=== PATIENT | female | born 1955 | race Caucasian/White ===

== ENCOUNTER → 2019-05-29 08:07 | Outpatient (BNVA) | payer OTHER, SELFPAY | PROVIDERS: Visit Provider Obstetrics & Gynecology | DX: N81.10 Cystocele, unspecified (principal) | CPT/HCPCS: 81003 ==

== ENCOUNTER 2019-09-05 10:25 | Observation (INO) | payer OTHER, SELFPAY ==
[2019-09-03 09:40] VITALS: BMI 26.6
[2019-09-03 10:03] LABS: Basophils % 0.7 %; Eosinophils # 0.1 10^3/uL (0.0-0.8); Eosinophils % 1.3 %; Hematocrit 44.1 % (37.0-47.0); Hemoglobin 14.1 g/dL (11.5-15.3); Lymphocytes # 1.9 10^3/uL (0.8-4.8); Mean Corpuscular Hemoglobin 29.5 pg (28.0-34.0); Mean Corpuscular Volume 92.3 fL (81-99); Mean Platelet Volume 8.8 fL (7.4-10.4); Monocytes # 0.4 10^3/uL (0.2-0.9); Monocytes % 7.1 %; Neutrophils # 3.5 10^3/uL (1.8-7.7); Neutrophils % 58.6 %; Nucleated Red Blood Cells % 0 %; Platelet Count 338 10^3/cmm (130-400); Red Blood Count 4.78 10^6/uL (4.1-5.3); Red Cell Distribution Width 13.4 % (12.1-15.1)
--- NOTE | 2019-09-03 10:06 | ANES.PREANE2 ---
Pre-Anesthetic Assessment Pre-Anesthetic Assessment: Height/Weight: Height 1.68 m Weight 74.843 kg Preop Diagnosis: Uterine prolapse Proposed Procedure: Operation Date: 09/05/19 09:10 Proposed Procedures p Total Vaginal Izmmrflgnrby40837/72785/95159/67226/N81.10(Not Applicable) - Patel Khan MD s Anterior and posterior colporrhaphy 78380(Not Applicable) - Patel Khan MD s Single incision urethral sling Sacrospinous ligament suspension 26102(Not Applicable) - Patel Khan MD Familial anesthetic complications: None Social: Social History: No alcohol and No tobacco Comment: former smoker Exam: Pre-Anes Outpt Exam: alert, oriented x 3, clear to auscultation bilaterally and regular rate & rhythm Airway: Cervical ROM: WNL MP: 2 Dentition: Chipped Additional comments: misssing Pulmonary: Pulmonary: None reported CV/HEM: CV/HEM: None reported : : None reported Hepatic: Hepatic: None reported GI: GI: None reported Metabolic: Metabolic: None reported Musc/skel: Musc/skel: Scoliosis Neuropsych: Neuropsych: TIA (6 years ago) Comments: 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5 MCHC 32.0 RDW 13.4 Plt Count 338 MPV 8.8 Neut % (Auto) 58.6 Lymph % (Auto) 32.0 [place] % (Auto) 7.1 Eos % (Auto) 1.3 Baso % (Auto) 0.7 Neut # (Auto) 3.5 Lymph # (Auto) 1.9 [place] # (Auto) 0.4 Eos # (Auto) 0.1 Baso # (Auto) 0.0 Nucleated RBC % (auto) 0 Nucleated RBCs # 0.0 Cardiac Studies: No Data to Display
[2019-09-03 10:15] LABS: Alanine Aminotransferase 14 U/L (0-33); Albumin Level 4.7 g/dL (3.5-5.2); Alkaline Phosphatase 125 IU/L (35-105); Anion Gap 16.1 (5-19); Aspartate Amino Transferase 16 U/L (0-32); Blood Urea Nitrogen 15 mg/dL (8-23); Calcium 9.6 mg/dL (8.5-10.5); Carbon Dioxide 26 mmol/L (22-29); Chloride 101 mmol/L (98-107); Creatinine Clr Calc Pharmacy 86.1863; Globulin 3.1 g/dL (1.3-4.6); Glomerular Filtration Rate 84.8 mL/min (90-130); Glucose 119 mg/dL (65-115); Osmolality Calculated 285 mOsm/kg (285-295); Potassium 4.1 mmol/L (3.5-5.1); Sodium 139 mmol/L (136-145); Total Bilirubin 0.4 mg/dL (0.15-1.2); Total Protein 7.8 g/dL (6.6-8.7)
[2019-09-03 10:17] LABS: Add Urine Microscopic? YES; Bilirubin Urine Neg (NEGATIVE); Blood Urine Trace (Negative); Glucose Urine UA Norm (Normal); Ketones Urine Negative (Negative); Leukocyte Esterase Urine Negative (Negative); Nitrate Urine Negative (Negative); Protein Urine Neg (Negative); Specific Gravity, Urine 1.015 (1.005-1.030); Urine Appearance Clear (CLEAR); Urine Color Straw (Yellow); Urobilinogen Urine Norm (Negative)
[2019-09-03 10:24] LABS: Add Urine Culture? No; Bacteria Urine TRACE; Mucus Urine 1+; RBC Urine 0-4 /hpf (0-2); Squamous Epithelial Cell Urine 0-4 (0-5)
[2019-09-05] VITALS (17 sets, daily range): BP systolic 97–132; BP diastolic 58–78; PULSE 70–94; RESP 12–19; TEMP 36.1–36.7; O2SAT 95–100; BMI 26.3
--- NOTE | 2019-09-05 06:31 | P.ANESUD_ITS ---
Pre-Anesthetic Update Pre-Anesthetic Assessment: Date of Surgery/Procedure: 09/05/19 Preop Justina gnosis: Uterine prolapse Proposed Procedure: Operation Date: 09/05/19 07:00 Proposed Procedures p Total Vaginal [id number]/79081/35981/48851/N81.10(Not Applicable) - Patel Khan MD s Anterior and posterior colporrhaphy 27939(Not Applicable) - Patel Khan MD s Single incision urethral sling Sacrospinous ligament suspension 26460(Not Applicable) - Patel Khan MD s Posterior Repair(Not Applicable) - Patel Khan MD Any changes to Pre-Anesthetic Assessment?: No Last Intake: Intake NPO > 8 hrs Last Liquid Date 09/04/19 Last Solid Date 09/04/19 Labs Last 48hrs: Laboratory Results - last 48 hr 09/03/19 09/03/19 09/03/19 09:50 09:50 09:50 WBC 6.0 RBC 4.78 Hgb 14.1 Hct 44.1 MCV 92.3 MCH 29.5 MCHC 32.0 RDW 13.4 Plt Count 338 MPV 8.8 Neut % (Auto) 58.6 Lymph % (Auto) 32.0 [place] % (Auto) 7.1 Eos % (Auto) 1.3 Baso % (Auto) 0.7 Neut # (Auto) 3.5 Lymph # (Auto) 1.9 [place] # (Auto) 0.4 Eos # (Auto) 0.1 Baso # (Auto) 0.0 Nucleated RBC % (a uto) 0 Nucleated RBCs # 0.0 Sodium 139 Potassium 4.1 Chloride 101 Carbon Dioxide 26 Anion Gap 16.1 BUN 15 Creatinine 0.7 GFR Calculation 84.8 L Glucose 119 H Calculated Osmolal ity 285 Calcium 9.6 Total Bilirubin 0.4 AST 16 ALT 14 Alkaline Phosphata se 125 H Total Protein 7.8 Albumin 4.7 Globulin 3.1 Urine Color Urine Appearance Urine pH Ur Specific Gravit y Urine Protein Urine Glucose (UA) Urine Ketones Urine Blood Urine Nitrate Urine Bilirubin Urine Urobilinogen Ur Leukocyte Tahira ase Urine RBC Urine WBC Ur Squamous Epith Cells Urine Bacteria Urine Mucus Blood Type A Positive Rho(D) Type Positive Antibody Screen Negative 09/03/19 10:10 WBC RBC Hgb Hct MCV MCH MCHC RDW Plt Count MPV Neut % (Auto) Lymph % (Auto) [place] % (Auto) Eos % (Auto) Baso % (Auto) Neut # (Auto) Lymph # (Auto) [place] # (Auto) Eos # (Auto) Baso # (Auto) Nucleated RBC % (a uto) Nucleated RBCs # Sodium Potassium Chloride Carbon Dioxide Anion Gap BUN Creatinine GFR Calculation Glucose Calculated Osmolal ity Calcium Total Bilirubin AST ALT Alkaline Phosphata se Total Protein Albumin Globulin Urine Color Straw Urine Appearance Clear Urine pH 5.0 Ur Specific Gravit y 1.015 Urine Protein Neg Urine Glucose (UA) Norm Urine Ketones Negative Urine Blood Trace H Urine Nitrate Negative Urine Bilirubin Neg Urine Urobilinogen Norm Ur Leukocyte [place]ira ase Negative Urine RBC 0-4 H Urine WBC None Ur Squamous Epith Cells 0-4 H Urine Bacteria Trace Urine Mucus 1+ Blood Type Rho(D) Type Antibody Screen Vitals: Temperature 97.9 F 09/05/19 06:11 Temperature Source Temporal Artery S can 09/05/19 06:11 Pulse Rate 73 09/05/19 06:11 Pulse Rhythm 09/05/19 06:11 Pulse Strength 3+ Normal 09/05/19 06:11 Respiratory Rate 18 09/05/19 06:11 Blood Pressure 132/78 09/05/19 06:11 Blood Pressure Theresa n 96 09/05/19 06:11 Pulse Oximetry 96 09/05/19 06:11 Oxygen Delivery Me thod 09/05/19 06:11 Exam: Pre-Anes Outpt Exam: alert, oriented x 3, clear to auscultation bilaterally and regular rate & rhythm Cardiac Studies: No Data to Display
--- NOTE | 2019-09-05 06:49 | W.PM.OPSUD ---
Surgery/Procedure H&P Update DATE OF PROCEDURE: September 05, 2019 DATE H&P PERFORMED: 09/03/19 H&P UPDATE INFORMATION: I have reviewed H&P completed within last 30 days, I have examined patient prior to procedure and No changes to prior documentation PREOP DIAGNOSIS: Uterine prolapse PLANNED PROCEDURE: Operation Date: 09/05/19 07:00 Proposed Procedures p Total Vaginal [id number]/47839/18690/08607/N81.10(Not Applicable) - Patel Khan MD s Anterior and posterior colporrhaphy 52200(Not Applicable) - Patel Khan MD s Single incision urethral sling Sacrospinous ligament suspension 53072(Not Applicable) - Patel Khan MD s Posterior Repair(Not Applicable) - Patel hKan MD
[2019-09-05] MEDS: sodium chloride 0.9% 1,000 ML 30 ML IV (07:20)
--- NOTE | 2019-09-05 07:57 | SUR.OPER ---
family updated per cell phone
--- NOTE | 2019-09-05 08:54 | SUR.OPER ---
patient family updated via telephone
--- NOTE | 2019-09-05 09:54 | SUR.OPER ---
family updated via telephone
[2019-09-05] MEDS: estrogens Conjugated Cream 30 gm 1 APPLIC VAGINAL (10:18)
--- NOTE | 2019-09-05 10:35 | P.OP_ITS ---
Operative Report Date of procedure: September 05, 2019 Pre-op Diagnosis: Uterine prolapse Post-op diagnosis: same Procedure Done: Total vaginal hysterectomy with Anterior colporrhaphy augmented with allograft, bilateral sacralspinous ligament fixation, Mid urethral sling. Cystoscopy Specimens removed/disposition: The uterus Surgeon: Patel Khan Anesthesia: General Estimated blood loss (mL): 200 IV fluids (mL): 1,100 Urine output (mL): 200 Complications: None Findings: Uterine prolapse stage III with cystocele and rectocele Condition: stable Disposition: PACU Procedure: After informed consent and risks, benefits, indications and alternatives reviewed with the patient was taken to the operating room. The patient was placed in dorsal lithotomy position prepped, and draped in the usual sterile fashion. The pre-procedure timeout verifying the correct patient, procedure, site and side, could not requirements was performed and acknowledge by the OR team. A Gonzalez catheter was placed. A Bookwalter vaginal retractor was placed into the vagina in usual manner visualize the cervix. Cervix was grasped with a single tooth tenaculum and circumferentially infiltrated with 1% Xylocaine with epinephrine. Then cervix was circumferentially incised with bovie and the bladder was dissected off the pubovesical cervical fascia anteriorly with a sponge stick and Metzenbaum scissors. The anterior peritoneal reflection was identified and the anterior cul-de-sac was entered sharply with Metzenbaum scissors. The same procedure was performed posteriorly and a posterior colpotomy was made through the posterior cul-de-sac space without difficulty and the posterior blade of the Bookwalter vaginal retractor was advanced posteriorly into the cul-de-sac. At this time, the left and right uterosacral ligaments were isolated and ligated with 0 Vicryl. The Voyant device was placed over the uterosacral ligaments on either side and was then used in a serial fashion up through the cardinal ligaments bilaterally cross-clamped, cut, and sealed with the Voyant device. Finally, the uterine arteries were cross-clamped, cut, sealed and ligated with the Voyant device. Hemostasis was assured. The broad ligaments were then serially clamped, sealed and cut with the Voyant device on both sides. Excellent hemostasis was visualized. Both cornua were clamped, sealed and cut with the Voyant/Voyant device. Then the pedicles were then suture ligated with excellent hemostasis. The uterus was excised and submitted for pathologic evaluation. No other abnormalities were noted in the pelvic cavity. The peritoneum was then closed in a pursestring fashion with 0 Vicryl suture. The vaginal cuff angles were closed with [id number] #0 Vicryl suture on both sides and transfixed with the ipsilateral cardinal and uterosacral ligaments. The remainder of the vaginal cuff was closed with #0 Vicryl in a running locked fashion. The anterior vaginal mucosa beneath the midurethra was infiltrated with 0.5% Marcaine with epinephrine. A vertical midline incision was made beneath the midurethra, nearly 1.5 cm length. Careful submucosal dissection was performed bilaterally up to the interior portion of the inferior pubic ramus. The insertion of adductor longus tendon on the patient?s pubic ramus was identified as reference land marshall. Palpated the notch along the internal edge of ischiopubic ramus where the adductor longus tendon and the inferior pubic ramus meet. The needle of the SIS inserted aiming at the location of this notch. One of the integrated self-fixating tips place onto the needle by sliding it over the end of the needle. The needle/sling assembly was inserted toward the location of identified reference notch making sure that the flat of the handle is perpendicular to the desired path. The needle was tracked along the posterior surface of the ischiopubic ramus until the midline marshall on the mesh is approximately at the midline position under the urethra. The needle was removed and the same was repeated on the contralateral side until the appropriate sling tension under the urethra was achieved ensuring that the mesh lays flat. The needle was removed and vaginal incision was closed in a running interlocking fashion with 2-0 Vicryl. The vaginal mucosa was then injected in the midline with normal saline. The vaginal mucosa was scored in the midline with the Bovie approximately 1 cm medial to the urethral meatus to 1 cm distal to the vaginal cuff/cervix. This vaginal mucosa was then undermined and then incised in the midline with the Metzenbaum scissors. The lateral aspects of the vaginal mucosa were then grasped with the Allis clamps and the vaginal mucosa was then dissected off the underlying fascia with the Metzenbaum scissors. Again, there was noted to be quite a bit of oozing at the incision, which was controlled with cautery. After adequate dissection was performed, bilaterally. The allograft is modified at time of application to fit spacea,4 x 3 cm piece . The allograft placed in front of cystocele ready to be implanted with the Basement Membrane facing the vagina mucosa. Suture is placed at distal end of graft and placed towards vaginal cuff. Final suture is placed on proximal portion of the graft to complete the placement overlying the bladder. Then Interrupted vertical mattress sutures of 0 Vicryl were used to elevate the cystocele superiorly. The excessive vaginal mucosa was then trimmed with the Metzenbaum scissors and the vaginal mucosa was then reapproximated in the running interlocking fashion with 2-0 Vicryl. The posterior vaginal mucosa is opened in the routine fashion as described previously in Posterior Repair. A finger is inserted through the incision in the posterior vaginal mucosa, dissecting out the rectovaginal space (RVS). The right rectal pillar (RRP) is identified. The rectal pillar can be bluntly perforated either with the finger or with the tip of a long Archana clamp. A Manan-Padmaja retractor is used for exposing the rectovaginal space in order to enter the pararectal space with retraction of the cardinal ligament, vagina, and rectum. Displacing the rectum to the left and the cardinal ligament and ureter anteriorly. A sponge dissector is used to bluntly dissect the sacrospinous l igament removing areolar tissue. The ischial spine was palpated directly, and a area approximately 2 cm medial to the spine was selected for insertion of the Anchorsure transvaginal sacrospinous fixation system. One end of the suture of Anchoresure system inserted through the sacrospinous ligament is placed through the muscular layer of the vagina. In a similar manner, the second suture is placed. The opposite end of the suture in the sacrospinous ligament is left free and held on a small hemostat. Then traction on this suture will draw the vaginal vault directly to the ligament, where a square knot affixes it to the sacrospinous ligament. After the saurabh stich is tied the second safety stich is tied. Then the colporrhaphy/vaginal repair is carried out in routine fashion. The patient was given indigo carmine IV. At this time, instruments were removed from the vagina at hemostasis assured. Then the Gonzalez catheter was removed and cystoscope was inserted. The bladder was filled with sterile water. Complete evaluation of the bladder mucosa was performed noting no lacerations, dimpling, tears, bleeding of the mucosa or muscular layers. Both ureteral orifices were identified. Prompt excretion of urine from both ureteral orifices was noted. Cystoscope was withdrawn. Gonzalez catheter was then placed yielding clear blue/serena urine. A vaginal packing with Premarin cream was placed and the patient was taken out of dorsal lithotomy position and awakened from the general anesthesia. The patient tolerated the procedure well and was taken to the PACU recovery room in a stable condition. Sponge, lap, needle and instruments counts were correct x3.
[2019-09-05] MEDS: ketorolac 30 mg/mL INJ IVP ×2 (11:38→18:08)
[2019-09-05] MEDS: dextrose 5%-lactated ringers 1,000 ML 125 ML IV (11:41)
[2019-09-05] MEDS: HYDROcodone-acetaminophen 5-325 mg Tablet PO (11:52)
[2019-09-05] MEDS: docusate sodium 100 mg Capsule PO (19:32)
[2019-09-06 04:10] VITALS: BP 108/71; PULSE 82; RESP 18; TEMP 36.7
[2019-09-06 05:32] LABS: Hematocrit 31.9 % (37.0-47.0); Mean Corpuscular HGB Conc 31.3 g/dL (30.0-36.0); Mean Corpuscular Hemoglobin 29.2 pg (28.0-34.0); Mean Platelet Volume 8.9 fL (7.4-10.4); Platelet Count 251 10^3/cmm (130-400); Red Blood Count 3.43 10^6/uL (4.1-5.3); Red Cell Distribution Width 13.5 % (12.1-15.1); White Blood Count 10.2 10^3/uL (4.0-10.0)
--- NOTE | 2019-09-06 06:20 | PC.NURSE ---
Gonzalez and packing removed at this time per Dr. Lacey verbal order
[2019-09-06] MEDS: ketorolac 30 mg/mL INJ IVP (06:29)
[2019-09-06] MEDS: docusate sodium 100 mg Capsule PO (09:37)
[2019-09-06 09:42] VITALS: BP 104/62; PULSE 82; RESP 16; TEMP 36.7; O2SAT 95
--- NOTE | 2019-09-06 10:42 | P.DS_ITS ---
Discharge Providers MIXER OPERATOR TABLETS Date of Admission: 09/05/19 10:25 Date of Discharge: 09/06/19 Attending Provider at Admission: Patel Khan MD Attending Provider at Discharge: Patel Khan MD Primary Care Provider: Mariel Adams MD Diagnoses at Discharge Discharge Diagnosis (1) Status post vaginal hysterectomy: Status: Acute Reason for Visit Reason for Visit: HYSTERECTOMY Brief History: 83-year-old female with a uterine prolapse stage II 2-3. Hospital Course Hospital Course: She was admitted for planned total vaginal hysterectomy with anterior Colporrhaphy augmented with allograft, posterior colporrhaphy, bilat eral sacrospinal fixation and mid urethral sling. The procedures were performed with no complications. Overnight observation uneventful. She is afebrile and hemodynamically stable, tolerating diet well, ambulating without difficulty, And refers little discomfort with pain under control. PVR was 0 mL. Physical Exam Narrative: EXAM NARRATIVE: GA: Alert and oriented ?3. HEENT: WNL. Heart: Regular rate and rhythm. Lungs: Clear to auscultation bilaterally. Abdomen: Bowel sounds present, nontender. BROADCAST PROGRAM DIRECTOR: No bleeding. Extremities: No edema, no cyanosis, no calves pain. Urinary Catheter Management^: Gonzalez: Cath Placed During This Visit: yes, but has since been removed by the nurse Reason for Continuing Indwelling Catheter: Decision to DC Catheter Urinary Catheter Date of Insertion: 09/05/19 Urinary Catheter Time of Insertion: 07:40 Date Urinary Catheter Removed: 09/06/19 Time Urinary Catheter Discontinued: 06:10 Discharge Data Data Completed and Pending: Pending at discharge Category Date Time Status Pathology: Surgic al [PTH] Routine Pth 09/05/19 10:34 Received Labs from last 24 hours 09/06/19 05:00 WBC 10.2 H RBC 3.43 L Hgb 10.0 L Hct 31.9 L MCV 93.0 MCH 29.2 MCHC 31.3 RDW 13.5 Plt Count 251 MPV 8.9 Laboratory Tests 09/03/19 09:50 WBC 6.0 Hgb 14.1 Hct 44.1 Plt Count 338 Procedures Performed: Total vaginal hysterectomy. Anterior colporrhaphy augmented with allograft. Posterior colporrhaphy. Lateral sacrospinous ligament Fixation. Urethral sling. Cystoscopy. Vitals: Last Vital Signs Temp 98.0 F 09/06/19 09:42 Pulse 82 09/06/19 09:42 Resp 16 09/06/19 09:42 BP 104/62 09/06/19 09:42 Pulse Ox 95 09/06/19 09:42 Discharge Plan Discharge Patient Disposition: Home, Self-Care Condition: Stable Prescriptions: New ibuprofen 800 mg Tablet 800 mg PO Q8H Qty: 60 RF: 0 hydrocodone-acetaminophen 5-325 mg Tablet 1 - 2 tab PO Q6H PRN (Reason: Moderate To Severe Pain) Qty: 20 RF: 0 Discharge Orders: Discharge Order (Routine); Ordered 09/06/19 Ordered By: Patel Khan Referrals: Patel Khan MD [Physician] - 09/18/19 7:45 am (* Your 2 week incision check is on 09/18/2019 at 7:45am * Your 6 week follow up appointment is 10/12/2019 at 1:00pm) Discharge Diet: Regular, GI Soft and Soft Mechanical Discharge Activity: Increase activity as tolerated Patient Instructions: Vaginal Hysterectomy (DC), Anterior Vaginal Repair (DC), Posterior Vaginal Repair (DC), OB Discharge Report, OB Anesthesia Instructions, OB Food/Drug Interaction Guide Activity Restrictions/Additional Instructions: POST-OPERATIVE INSTRUCTIONS FOR VAGINAL PROLAPSE, RECONSTRUCTION AND SLING SURGERY-Pelvic rest for 6 weeks (no sex, no tampons, no vaginal douches). Return to the emergency room if any fever, increased bleeding or pain. 1. You have just had vaginal surgery for prolapse and reconstruction. It is common to experience vaginal bleeding or spotting and even difficulty in urinary stream or bowel movements for a short period of time. 2. Try to void by the clock every two to three hours (timed voiding) for the next few weeks, and avoid letting your bladder get over distended. 3. Avoid constipation. Stool softeners and fiber twice a day are good ways to minimize constipation and reduce pelvic pain and inflammation. 4. Sitz baths (hot salt water baths) once or twice daily can be used to aid in the vaginal and pelvic discomfort. You can readily obtain a Sitz bath that will sit in your toilet at home at any large pharmacy or medical supply house. 5. Other than the Sitz.bath, nothing inside the vagina. No intercourse until Dr. Mendoza performs a follow up exam. 6. No heavy lifting (anything heavier than the phone book) for two to four weeks after the operation. 7. It is very common to have a suprapubic tube inserted to help drain the bladder and help with bladder training after major vaginal or pelvic reconstruction. If you have a suprapubic tube, please refer to the instruction sheet for suprapubic tube care. 8. After discharge from the hospital Dr. Khan will need to see you for a limited pelvic exam and urine check roughly two to three weeks after the operation. At this visit, if things look well, some restrictions may be lifted and you will be able to drive and get back to limited physical activity. Many women will need to take a full six weeks off from their jobs or any heavy physical activity until the vaginal area is completed healed. After the first postoperative' visit, Dr. Khan will then make another appointment to see you four to six weeks after the first visit (roughly two months after the operation) and if complete healing has occurred, unrestricted physical activity, intercourse, swimming and heavy lifting may be undertaken. 9. Remember: itching is very common in the healing phase, and may not necessarily indicate a vaginal infection (such as a yeast infection). For any questions regarding post-operative care, or any concerns that arise, please contact the office Discharge Attestations MIXER OPERATOR TABLETS Time Spent in Discharge Care*: greater than 30 min Specific Discharge Activities: Specific discharge activities: educating patient Coding Level of Care Code Acute Nut Dehydrator Operator for Jessie Mejia Diagnoses Status post vaginal hysterectomy Z90.710
[2019-09-06 11:00] VITALS: BP 118/71; PULSE 92; RESP 16; TEMP 36.4; O2SAT 95
== END 2019-09-06 11:11 | disposition home or self-care (01) ==
LOC: OBGYN 10:26
PROVIDERS: Admitting Provider Obstetrics & Gynecology; PCP Family Medicine; Visit Provider Obstetrics & Gynecology
PROC: (CPT 57240; principal; 2019-09-05 07:00)
PROC: 0JQC0ZZ Repair Pelvic Region Subcutaneous Tissue and Fascia, Open Approach (ICD-10-PCS; CPT 57240; 2019-09-05 07:00)
PROC: (CPT 57288; 2019-09-05 07:00)
PROC: (CPT 57250; 2019-09-05 07:00)
PROC: 0TJB8ZZ Inspection of Bladder, Via Natural or Artificial Opening Endoscopic (ICD-10-PCS; CPT 52000; 2019-09-05 07:00)
DX: N81.4 Uterovaginal prolapse, unspecified (principal); Z86.73 Personal history of transient ischemic attack (TIA), and cerebral infarction without residual deficits; Z87.891 Personal history of nicotine dependence
CPT/HCPCS: 57240; 57267; 57282; 57288; 58260; 12345; 36415; 80053; 81001; 85025; 85027; 86850; 86900; 88307; 96375; C1713; C1762; G0378; J0694; J1100; J1885; J2001; J2405; J2704; J3010; J3490; J7030

== ENCOUNTER → 2022-03-04 08:38 | Outpatient (BNVA) | payer MEDICARE, SELFPAY | PROVIDERS: PCP Family Medicine; Visit Provider Nurse Practitioner | DX: Z13.6 Encounter for screening for cardiovascular disorders (principal); R53.83 Other fatigue | CPT/HCPCS: 80053; 80061; 84443; 85025 ==

== ENCOUNTER → 2023-03-07 09:11 | Outpatient (BNVA) | payer MEDICARE, SELFPAY | PROVIDERS: PCP Family Medicine; Visit Provider Nurse Practitioner Family | DX: Z00.00 Encounter for general adult medical examination without abnormal findings (principal); Z79.899 Other long term (current) drug therapy; Z13.6 Encounter for screening for cardiovascular disorders; E55.9 Vitamin D deficiency, unspecified | CPT/HCPCS: 80053; 80061; 81003; 82306; 83036; 84443; 85025 ==

== ENCOUNTER 2023-06-29 09:17 | Outpatient (CLI) | payer MEDICARE, SELFPAY ==
--- NOTE | 2023-06-29 09:30 | MM_ITS ---
WS: [id number] BILATERAL SCREENING DIGITAL TOMOSYNTHESIS MAMMOGRAM WITH CAD HISTORY: Z12.39 - Encounter for other screening for malignant neop... COMPARISON: None available. Bilateral CC and MLO views with tomosynthesis and synthetic mammography submitted. Computer aided det ection analyzed. Breast composition: There are scattered areas of fibroglandular density. No suspicious masses, microc alcifications or architectural distortion. Benign coarse calcifications in each breast. Mild bilatera l vascular calcifications. IMPRESSION: MM/[place] [id number] BI-RADS: 2-Benign FOLLOW UP: 1 Year Follow-up
== END 2023-06-29 09:18 | disposition home or self-care (01) ==
LOC: MOBLMAM 09:25
PROVIDERS: PCP Nurse Practitioner Family; Visit Provider Nurse Practitioner Family
DX: Z12.31 Encounter for screening mammogram for malignant neoplasm of breast
CPT/HCPCS: 77063; 77067

== ENCOUNTER 2024-08-01 12:56 | Outpatient (CLI) | payer MEDICARE, SELFPAY ==
--- NOTE | 2024-08-01 13:00 | MM_ITS ---
WS: [id number] BILATERAL 3D TOMOSYNTHESIS DIGITAL SCREENING MAMMOGRAPHY WITH CAD CLINICAL INFORMATION: SCREENING HISTORY: Screening mammogram. No current complaints. COMPARISON: 2023 TECHNIQUE: Bilateral CC and MLO views. FINDINGS: The breasts are composed of heterogeneous fibroglandular density tissue, which can limit the detection of small underlying mass lesions. No suspicious mass, asymmetry, calcifications, or architectural distortion. No evidence of malignancy. Vascular calcification. Incidental benign lucent centered calci fications. MM/MM [facility] tomosynthesis [id number] IMPRESSION: DENSITY: There are scattered areas of fibroglandular density. BI-RADS: 2 - Benign FOLLOW UP: 1 Year Follow-up Recommend return to annual screening mammography.
== END 2024-08-01 12:57 | disposition home or self-care (01) ==
PROVIDERS: PCP Nurse Practitioner Family; Visit Provider Nurse Practitioner Family
DX: Z12.31 Encounter for screening mammogram for malignant neoplasm of breast (principal); R92.323 Mammographic fibroglandular density, bilateral breasts; R92.1 Mammographic calcification found on diagnostic imaging of breast
CPT/HCPCS: 77063; 77067

== ENCOUNTER → 2025-03-26 08:12 | Outpatient (BNVA) | payer MEDICARE, SELFPAY | PROVIDERS: PCP Nurse Practitioner Family; Visit Provider Nurse Practitioner Family | DX: Z13.6 Encounter for screening for cardiovascular disorders (principal); E55.9 Vitamin D deficiency, unspecified; Z79.899 Other long term (current) drug therapy | CPT/HCPCS: 80053; 80061; 81003; 82306; 83036; 84443; 85025 ==